=== PATIENT | male | born 1985 | race Caucasian/White ===

== ENCOUNTER 2024-06-04 14:09 | Emergency (ER) | payer SELFPAY ==
[2024-06-04] MEDS: Sodium Chloride 0.9% 10 ML Syringe FLUSH PRN (16:09)
[2024-06-04] MEDS: Ketorolac 30 MG/ML SDV IVPUSH ONE (16:09)
[2024-06-04] MEDS: Sodium Chloride 0.9% 2.5 ML Syringe FLUSH PRN (16:09)
[2024-06-04 16:12] LABS: HEMATOCRIT 40.9 % (42.0-52.0); HEMOGLOBIN 14.5 g/dL (14.0-18.0); MEAN CORPUSCULAR HEMOGLOBIN 30.4 pg (28.0-32.0); MEAN CORPUSCULAR HGB CONC 35.5 g/dL (32.0-36.0); MEAN CORPUSCULAR VOLUME 85.7 fL (83.0-99.0); MEAN PLATELET VOLUME 10.2 fL (9.4-12.4); PLATELET COUNT,PLT 164 K/uL (150-400); RED BLOOD CELL COUNT 4.77 M/uL (4.52-5.90); WHITE BLOOD CELL COUNT,WBC 17.63 K/uL (3.9-11.3)
[2024-06-04 16:42] LABS: A/G RATIO 0.6 (0.9-1.6); ALBUMIN 2.8 g/dL (3.4-5.0); BILIRUBIN TOTAL 0.7 mg/dL (0.2-1.0); CARBON DIOXIDE,CO2 27.3 mmol/L (21.0-32.0); CREATININE 1.3 mg/dL (0.8-1.3); EST CRCL DRUG DOSING (CG) 77.99 mL/min; POTASSIUM,K 4.3 mmol/L (3.5-5.1); PROTEIN TOTAL,TP 7.2 g/dL (6.4-8.2)
[2024-06-04 16:50] LABS: LACTIC ACID 1.1 mmol/L (0.4-2.0)
[2024-06-04 16:58] LABS: C-REACTIVE PROTEIN 26.02 mg/dL (<0.3)
[2024-06-04 17:04] LABS: BAND ABSOLUTE MAN 1.06; BAND PERCENT MAN 6 %; LYMPHOCYTES ABSOLUTE MAN 1.41 K/uL (1.00-4.80); LYMPHOCYTES PERCENT MAN 8 % (24-44); MONOCYTES ABSOLUTE MAN 2.12 K/uL (0.00-0.80); MONOCYTES PERCENT MAN 12 % (0-8); SEG NEUTROPHILS ABSOLUTE MAN 13.05 K/uL (1.80-7.70); SEG NEUTROPHILS PERCENT MAN 74 % (41-71)
[2024-06-04 17:16] LABS: CORONAVIRUS COVID-19 NAA NEGATIVE (NEGATIVE); INFLUENZA A NAA NEGATIVE (NEGATIVE); INFLUENZA B NAA NEGATIVE (NEGATIVE); RESPIRATORY SYNCYTIAL VIR NAA NEGATIVE (NEGATIVE)
[2024-06-04] MEDS: Iopamidol 755 MG/ML 500 ML Multipack Bottle IVPUSH STA (17:45)
[2024-06-04] MEDS: Sodium Chloride 0.9% 1,000 ML IV ONE ×2 (18:30→19:39)
[2024-06-04] MEDS ORDERED: Naloxone 0.4 MG/ML SDV IVPUSH PRN (18:34)
[2024-06-04] MEDS: Morphine 4 MG/ML Syringe IVPUSH ONE (18:48)
[2024-06-04] MEDS: ceFAZolin 2 GM in Sodium Chloride 0.9% 50 ML IV ONE (19:39)
== END 2024-06-04 20:01 | disposition home or self-care (01) ==
LOC: MW.ED 14:09
DX: M70.61 Trochanteric bursitis, right hip (principal); Z75.8 Other problems related to medical facilities and other health care
CPT/HCPCS: 0241U; 36415; 71045; 73502; 74177; 80053; 82550; 83605; 85025; 85652; 86140; 87040; 96365; 96375; 99284; J0690; J1885; J2270; J3490; J7030; Q9967